=== PATIENT | male | born 1985 ===

== ENCOUNTER → 2016-12-09 | Outpatient (CLI) | payer OTHER ==
--- NOTE | 2016-12-09 17:02 | RAD ---
Three-view lumbar spine radiographs 12/09/2016 Clinical history: Low back pain and spasms for a few days. Lifting injury. AP and 2 lateral digital radiographs of the lumbar spine were obtained. Very mild lateral curvature of the lumbar spine is seen convex to the left. No fracture or subluxation of the lumbar vertebrae is seen. Mild degenerative changes are seen involving the mid and lower lumbar spine consisting of vertebral endplate sclerosis and minimal anterior vertebral body osteophyte formation along with mild degenerative changes involving the facet joints. Mild atherosclerotic calcification of the abdominal aorta is seen. Impression: Mild degenerative changes are seen involving the mid and lower lumbar spine. No acute osseous abnormality is seen.
== END | disposition home or self-care (01) ==
LOC: DXRADRC 14:19
PROVIDERS: ATTEND Nurse Practitioner Family
DX: M47.896 Other spondylosis, lumbar region (principal); I70.0 Atherosclerosis of aorta
CPT/HCPCS: 72100